=== PATIENT | female | born 1960 | race Caucasian/White ===

== ENCOUNTER 2022-08-20 03:56 | Outpatient (CLI) | payer BC | END 2022-08-20 23:59 | disposition critical access hospital (66) | LOC: EMS 03:56 | DX: R53.1 Weakness (principal); R25.2 Cramp and spasm; R11.2 Nausea with vomiting, unspecified; R06.02 Shortness of breath; R25.1 Tremor, unspecified | CPT/HCPCS: A0425; A0427 ==

== ENCOUNTER 2022-08-20 05:01 | Emergency (ER) | payer BC ==
[2022-08-20] MEDS ORDERED: SODIUM CHLORIDE 0.9% 1,000 ML IV STA (05:26)
[2022-08-20] MEDS ORDERED: iohexoL-300 100 ML VIAL ONE (05:34)
[2022-08-20 05:42] LABS: BASOPHILS % (AUTO) 0.1 %; EOSINOPHILS % (AUTO) 0.6 %; HCT - HEMATOCRIT 40.2 % (37.0-47.0); HGB - HEMOGLOBIN 13.1 g/dL (12.0-16.0); LYMPHOCYTES # (AUTO) 0.7 10^3/uL (1.5-3.5); LYMPHOCYTES % (AUTO) 10.1 %; MEAN CORPUSCULAR HEMOGLOBIN 30.1 pg (27.0-31.0); MEAN CORPUSCULAR HGB CONC 32.6 g/dL (32.0-36.0); MEAN CORPUSCULAR VOLUME 92.4 fL (81.0-99.0); MEAN PLATELET VOLUME 9.5 fL (7.9-10.8); MONOCYTES # (AUTO) 0.5 10^3/uL (0.0-1.0); NEUTROPHILS # (AUTO) 5.6 10^3/uL (1.5-6.6); NEUTROPHILS % (AUTO) 81.8 %; PLT - PLATELET COUNT 214 10^3/uL (130-450); RED BLOOD COUNT 4.35 10^6/uL (4.20-5.40); RED CELL DISTRIBUTION WIDTH 13.1 % (12.0-15.0); WHITE BLOOD COUNT 6.8 x10^3/uL (4.8-10.8)
[2022-08-20] MEDS ORDERED: iohexoL-300 100 ML VIAL IVP ONE (05:57)
--- NOTE | 2022-08-20 06:04 | ED Physician Documentation ---
History of Present Illness - Stated complaint Stated Complaint: STROKE SYMP - Chief complaint Chief Complaint: Neuro - History obtained from History obtained from: Patient, Family () - Additonal information Additional information: 61-year-old woman , previously healthy, presents with acute episode of vertigo, nonbloody nonbilious nausea and vomiting, and tremors/jerking upon waking from sleep at 4 AM. Patient had 3 servings of alcohol and a marijuana dissolving tablet as well as marijuana oil last night. she does not normally imbibe marijuana. Denies feeling "high" but does state her dizziness has worsened since waking. also with numbness/tingling in extremities. does have FH stroke Review of Systems Constitutional: denies: Fever Cardiac: denies: Chest pain / pressure Respiratory: denies: Dyspnea GI: reports: Nausea, Vomiting. denies: Abdominal Pain, Diarrhea Neurologic: reports: Other (dizziness) PD PAST MEDICAL HISTORY - Past Medical History Past Medical History: No - Past Surgical History Past Surgical History: No - Present Medications Home Medications: Ambulatory Orders Medication Instructions Recorded Confirmed No Known Home Medications 08/20/22 08/20/22 - Allergies Allergies/Adverse Reactions: Allergies Allergy/AdvReac Type Severity Reaction Status Date / Time No Known Drug Allergies Allergy Verified 08/20/22 05:13 - Social History Does the pt smoke?: No Smoking Status: Never smoker Does the pt drink ETOH?: Yes ETOH Use: Wine Does the pt have substance abuse?: No Substance Use and Type: Marijuana - Immunizations Immunizations are current?: Yes - POLST Patient has POLST: No PD ED PE NORMAL - Vitals Vital signs reviewed: Yes - General General: Alert and oriented X 3, No acute distress, Well developed/nourished - HEENT HEENT: Atraumatic, PERRL, EOMI - Neck Neck: Supple, no meningeal sign - Cardiac Cardiac: RRR - Respiratory Respiratory: No respiratory distress, Clear bilaterally - Abdomen Abdomen: Non tender, Non distended - Derm Derm: Normal color, Warm and dry - Neuro Neuro: Alert and oriented X 3, respiratory therapy instructor 2-12 intact, No motor deficit, No sensory deficit, Normal speech, Other (ambulatory with shuffling gait. NIHSS 1 (sensory)) Eye Opening: Spontaneous Motor: Obeys Commands Verbal: Oriented GCS Score: 15 - Psych Psych: Normal mood, Normal affect Results - Vitals Vitals: Vital Signs - 24 hr 08/20/22 08/20/22 05:12 07:14 Temperature 36.8 C Heart Rate 80 83 Respiratory 16 16 Rate Blood Pressure 114/64 115/73 O2 Saturation 94 98 Oxygen O2 Source Room air - Labs Labs: Laboratory Tests 08/20/22 08/20/22 05:34 05:34 WBC 6.8 RBC 4.35 Hgb 13.1 Hct 40.2 MCV 92.4 MCH 30.1 MCHC 32.6 RDW 13.1 Plt Count 214 MPV 9.5 Neut # (Auto) 5.6 Lymph # (Auto) 0.7 L Alexander # (Auto) 0.5 Eos # (Auto) 0.0 Baso # (Auto) 0.0 Absolute Nucleated RBC 0.00 Nucleated RBC % 0.0 Sodium 144 Potassium 4.8 Chloride 111 Carbon Dioxide 25 Anion Gap 8.0 BUN 14 Creatinine 0.9 Estimated GFR (MDRD) 64 L Glucose 108 H Calcium 9.1 Total Bilirubin 0.8 AST 26 ALT 24 Alkaline Phosphatase 50 Total Protein 6.7 Albumin 4.1 Globulin 2.6 Albumin/Globulin Ratio 1.6 Lipase 34 PD Medical Decision Making - ED course ED course: 61yF presents after waking up around 4am with symptoms of concern - vertigo, n/v, numbness, difficulty walking, tremors. CTA head/neck undertaken to eval for posterior circulation stroke. patient is outside window for tPA and also with low NIHSS of 1 precluding thrombectomy. alternative explanation for her symptoms is side effects of marijuana ingestion this past evening. plan to obtain labs, ct results, then reevaluate. cbc and abdominal panel unremarkable. ED physician wet read of CTA head and neck - no acute pathology. Negative per final read from outside radiologist. d/w patient and family. Return precautions given. Departure - Departure Disposition: 01 Home, Self Care Clinical Impression: Dizziness, Tremors of nervous system, Vomiting Condition: Stable Instructions: ED Vertigo Unspecified Comments: You were seen in the ED for medical evaluation. Your labwork and CTs uncovered no emergent cause for your symptoms. Please follow up with your primary care provider for further management and return to the ED for new or worsening symptoms or other concerns.
[2022-08-20 06:21] LABS: ALBUMIN 4.1 g/dL (3.2-5.5); ALBUMIN/GLOBULIN RATIO 1.6 (1.0-2.2); BILIRUBIN,TOTAL 0.8 mg/dL (0.2-1.0); CALCIUM 9.1 mg/dL (8.5-10.3); CREATININE 0.9 mg/dL (0.4-1.0); POTASSIUM 4.8 mmol/L (3.5-5.0); TOTAL PROTEIN 6.7 g/dL (6.7-8.2)
[2022-08-20 07:15] VITALS: BP 115/73
--- NOTE | 2022-08-20 08:57 | CT Report ---
PROCEDURE: ANGIO NECK W INDICATIONS: vertigo, n/v on waking 5am CONTRAST: 100 ML OMNI 300 TECHNIQUE: After the administration of intravenous contrast, 1.5 mm axial sections acquired from the aortic arch to the [place]. Coronal 3-D maximum intensity projection (MIP) and/or volume rendering ref ormats were then performed. For radiation dose reduction, the following was used: automated exposur e control, adjustment of mA and/or kV according to patient size. COMPARISON: Head CT angiogram, 08/20/2022. FINDINGS: Image quality: Excellent. Carotid system: The great vessels demonstrate a conventional anatomy as they arise from the aortic a rch. The origins of the common carotid arteries appear patent. The common carotid arteries demonstr ate normal calibers and courses. The bifurcation regions appear normal bilaterally. The internal ca rotid arteries demonstrate normal caliber and course. Posterior circulation: The origins of the vertebral arteries appear patent. The more superior porti ons of the vertebral arteries demonstrate normal course and caliber. They join to form a normal appe aring basilar artery. Soft tissues: Visualized neck soft tissues demonstrate no suspicious abnormalities. The thyroid is normal in size and there are no incidental findings. Bones: No suspicious bony lesions. Visualized cervical spine appears normally aligned. IMPRESSION: No high-grade stenosis or occlusion in carotid arteries or vertebral arteries. No significant discrepancy with the preliminary interpretation. The estimate of stenosis included in the report of the imaging study was calculated using the NASCET method CLINICAL RECOMMENDATION STATEMENTS: In patients <35 years with an ITN detected on CT, MRI, or extrathyroidal ultrasound, the Committee re commends further evaluation with dedicated thyroid ultrasound if the nodule is "e1 cm and has no susp icious imaging features, and if the patient has normal life expectancy. In patients "e35 years with an ITN detected on CT, MRI, or extrathyroidal ultrasound, the Committee r ecommends further evaluation with dedicated thyroid ultrasound if the nodule is "e1.5 cm and has no s uspicious imaging features, and if the patient has normal life expectancy. (ACR, 2014) Reviewed by: Triny Kennedy MD on 08/20/2022 8:56 AM PDT Approved by: Triny Kennedy MD on 08/20/2022 8:56 AM PDT Station ID: [id number]
--- NOTE | 2022-08-20 09:00 | CT Report ---
PROCEDURE: ANGIO HEAD W/WO INDICATIONS: vertigo, n/v on waking 5am CONTRAST: 100 ML OMNI 300 TECHNIQUE: Precontrast 4.5 mm thick angled axial sections acquired from the foramen magnum to the vertex. Afte r the administration of intravenous contrast, 1 mm thick sections acquired through the [place] is. Postcontrast 4.5 mm thick sections then re-acquired from the foramen magnum to the vertex. 3-di mensional sexouma-ehxqxcgks-drpkekontq (MIP) and/or volume rendering reformats were acquired of the c entral intracranial vasculature. For radiation dose reduction, the following was used: automated ex posure control, adjustment of mA and/or kV according to patient size. COMPARISON: None. FINDINGS: Image quality: Excellent. Anterior circulation: Intracranial internal carotid arteries are normal in size and flow. 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 The left A1 segment is prominent in caliber. D istally, the paired anterior cerebral arteries is normal and symmetric. The flow within the middle c erebral arteries is normal and symmetric. The anterior communicating artery is seen. No aneurysms a re seen. Posterior circulation: Visualized portions of the vertebral arteries demonstrate normal caliber, and join to form a normal appearing basilar artery. Flow within the posterior cerebral arteries is norm al and symmetric. No aneurysms are seen. CSF spaces: Mild cerebral volume loss. Moderate periventricular white matter chronic small vessel is chemic changes. Ventricles are symmetrical in size and shape. Basal cisterns are patent. No extra-a xial fluid collections. Brain: No midline shift. No intracranial bleeds or masses. [place]-white matter interface appears int act. Skull and face: Calvarium and facial bones appear intact, without suspicious lesions. Sinuses: Visualized sinuses and mastoids are clear. IMPRESSION: 1. No acute intracranial abnormality 2. Cerebral volume loss and periventricular white matter chronic small vessel treatment changes. 3. 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 4. No high-grade stenosis or occlusion in anterior or posterior circulations. No significant discrepancy with the preliminary interpretation. Reviewed by: Triny Kennedy MD on 08/20/2022 8:59 AM PDT Approved by: Triny Kennedy MD on 08/20/2022 8:59 AM PDT Station ID: [id number]
== END 2022-08-20 07:34 | disposition home or self-care (01) ==
LOC: ED 05:01
DX: R42 Dizziness and giddiness (principal); R25.1 Tremor, unspecified; R11.10 Vomiting, unspecified; Z82.3 Family history of stroke
CPT/HCPCS: 36415; 70496; 70498; 80053; 83690; 85025; 99283; 99284; Q9967